=== PATIENT | male | born 1990 | race Caucasian/White ===

== ENCOUNTER 2017-03-16 16:02 | Emergency (ER) | payer SELFPAY | END 2017-03-17 00:03 | disposition left against medical advice (07) | LOC: E/R 16:02 | DX: Z53.21 Procedure and treatment not carried out due to patient leaving prior to being seen by health care provider (principal) ==

== ENCOUNTER 2017-11-23 05:28 | Emergency (ER) | payer MEDICAID | END 2017-11-23 06:58 | disposition home or self-care (01) | LOC: FTE 05:28 | DX: F41.9 Anxiety disorder, unspecified (principal) | CPT/HCPCS: 71045; 93005; 99284-25 ==